=== PATIENT | male | born 1960 | race Caucasian/White ===

== ENCOUNTER 2016-11-14 02:30 | Observation (INO) | payer OTHER ==
[2016-11-14] MEDS ORDERED: Aspirin Low Dose CHEW TAB* 81 MG PO ONE (02:32)
[2016-11-14 02:51] LABS: Hematocrit 39 % (42-52); Hemoglobin 13.4 g/dl (14.0-18.0); Mean Corpuscular HGB Conc 34 g/dl (31-36); Mean Corpuscular Hemoglobin 30 pg (27-31); Mean Corpuscular Volume 87 fL (80-94); Mean Platelet Volume 9 um3 (7.4-10.4); Red Blood Count 4.49 10^6/ul (4.0-5.4); Red Cell Distribution Width 14 % (10.5-15); White Blood Count 8.4 10^3/ul (3.5-10.8)
[2016-11-14 03:06] LABS: BUN/Creatinine Ratio 22.8 (8-20); Calcium 9.3 mg/dL (8.6-10.3); EGFR African American 85.2 (>60); EGFR Non-African American 66.2 (>60); Total Bilirubin 0.4 mg/dL (0.2-1.0)
[2016-11-14 03:08] LABS: Potassium 3.5 mmol/L (3.5-5.0)
[2016-11-14 03:09] LABS: Troponin I 0.1 ng/mL (<0.04)
--- NOTE | 2016-11-14 04:43 | ED ---
Solomon Colon Billy, scribed for Aroldo Bailey MD on 11/14/16 at 0248 . Palpitations / Dysrhythmia - HPI Summary HPI Summary: Patient is a 56 year-old male coming to [facility] for evaluation after his ICD fired 5x in the last half hour prior to arrival to the ED. He also reports some chest tightness. Patient recently traveled to [place] from [place]. - History of Current Complaint Chief Complaint: EDDysrhythmPalp Time Seen by Provider: 11/14/16 02:31 Hx Obtained From: Patient Onset/Duration: Gradual Onset Timing: Intermittent Episodes Lasting: Severity Initially: Moderate Severity Currently: Moderate Character: Irregular Associated Signs & Symptoms: Chest Pain - Allergy/Home Medications Allergies/Adverse Reactions: Allergies Allergy/AdvReac Type Severity Reaction Status Date / Time No Known Allergies Allergy Verified 11/14/16 03:47 Home Medications: Home Medications Aspirin [Aspirin 81 MG TAB] 81 mg PO QAM 11/14/16 [History Confirmed 11/14/16] Irbesartan 11/14/16 [History] Metoprolol Succinate [Toprol Xl] 25 mg PO QPM 11/14/16 [History Confirmed ] Metoprolol Succinate [Toprol Xl] 50 mg PO QAM 11/14/16 [History Confirmed ] Ranolazine (NF) [Ranexa (NF)] 1,000 mg PO BID 11/14/16 [History Confirmed ] PMH/Surg Hx/FS Hx/Imm Hx Endocrine/Hematology History: Denies: Hx Diabetes Cardiovascular History: Reports: Other Cardiovascular Problems/Disorders - ICD in 2011 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, VT, and afib Infectious Disease History: No Infectious Disease History: Denies: Traveled Outside the US in Last 30 Days - Family History Known Family History: Positive: Cardiac Disease - Social History Alcohol Use: Weekly Substance Use Type: Reports: None Smoking Status (MU): Never Smoked Tobacco Review of Systems Negative: Fever Cardiovascular: Other - defibrillator firing, chest tightness All Other Systems Reviewed And Are Negative: Yes Physical Exam Triage Information Reviewed: Yes Vital Signs On Initial Exam: Initial Vitals Temp Pulse Resp BP Pulse Ox 97.1 F 78 14 123/78 99 11/14/16 02:32 11/14/16 02:32 11/14/16 02:32 11/14/16 02:32 11/14/16 02:32 Vital Signs Reviewed: Yes Appearance: Positive: Well-Appearing, No Pain Distress - anxious Skin: Positive: Warm Head/Face: Positive: Normal Head/Face Inspection Eyes: Positive: JEFFREY ENT: Positive: Hearing grossly normal Neck: Positive: Supple Respiratory/Lung Sounds: Positive: Breath Sounds Present Cardiovascular: Positive: RRR. Negative: Murmur Abdomen Description: Positive: Nontender, Soft Bowel Sounds: Positive: Present Musculoskeletal: Positive: Strength/ROM Intact Neurological: Positive: Alert, Oriented to Person Place, Time Psychiatric: Positive: Affect/Mood Appropriate - [place] Coma Scale Coma Scale Total: 15 Diagnostics - Vital Signs Vital Signs Temp Pulse Resp BP Pulse Ox 11/14/16 02:32 97.1 F 78 14 123/78 99 - Laboratory Lab Results: Lab Results 11/14/16 11/14/16 11/14/16 Range/Units 02:40 02:40 02:40 WBC 8.4 (3.5-10.8) 10^3/ul RBC 4.49 (4.0-5.4) 10^6/ul Hgb 13.4 L (14.0-18.0) g/dl Hct 39 L (42-52) % MCV 87 (80-94) fL MCH 30 (27-31) pg MCHC 34 (31-36) g/dl RDW 14 (10.5-15) % Plt Count 170 (150-450) 10^3/ul MPV 9 (7.4-10.4) um3 Neut % (Auto) 48.5 (38-83) % Lymph % (Auto) 36.9 (25-47) % Ul[place] % (Auto) 10.6 H (1-9) % Eos % (Auto) 2.7 (0-6) % Baso % (Auto) 1.3 (0-2) % Absolute Neuts (auto) 4.1 (1.5-7.7) 10^3/ul Absolute Lymphs (auto) 3.1 (1.0-4.8) 10^3/ul Absolute Monos (auto) 0.9 H (0-0.8) 10^3/ul Absolute Eos (auto) 0.2 (0-0.6) 10^3/ul Absolute Basos (auto) 0.1 (0-0.2) 10^3/ul Absolute Nucleated RBC 0.01 10^3/ul Nucleated RBC % 0.1 INR (Anticoag Therapy) 0.86 L (0.89-1.11) Sodium 136 (133-145) mmol/L Potassium 3.5 (3.5-5.0) mmol/L Chloride 100 L (101-111) mmol/L Carbon Dioxide 27 (22-32) mmol/L Anion Gap 9 (2-11) mmol/L BUN 26 H (6-24) mg/dL Creatinine 1.14 (0.67-1.17) mg/dL Est GFR ( Amer) 85.2 (>60) Est GFR (Non-Af Amer) 66.2 (>60) BUN/Creatinine Ratio 22.8 H (8-20) Glucose 98 (70-100) mg/dL Lactic Acid (0.5-2.0) mmol/L Calcium 9.3 (8.6-10.3) mg/dL Magnesium 2.0 (1.9-2.7) mg/dL Total Bilirubin 0.40 (0.2-1.0) mg/dL AST 43 H (13-39) U/L ALT 26 (7-52) U/L Alkaline Phosphatase 37 (34-104) U/L Troponin I 0.10 H* (<0.04) ng/mL Total Protein 7.0 (6.4-8.9) g/dL Albumin 4.0 (3.2-5.2) g/dL Globulin 3.0 (2-4) g/dL Albumin/Globulin Ratio 1.3 (1-3) 11/14/16 Range/Units 02:40 WBC (3.5-10.8) 10^3/ul RBC (4.0-5.4) 10^6/ul Hgb (14.0-18.0) g/dl Hct (42-52) % MCV (80-94) fL MCH (27-31) pg MCHC (31-36) g/dl RDW (10.5-15) % Plt Count (150-450) 10^3/ul MPV (7.4-10.4) um3 Neut % (Auto) (38-83) % Lymph % (Auto) (25-47) % Ulster % (Auto) (1-9) % Eos % (Auto) (0-6) % Baso % (Auto) (0-2) % Absolute Neuts (auto) (1.5-7.7) 10^3/ul Absolute Lymphs (auto) (1.0-4.8) 10^3/ul Absolute Monos (auto) (0-0.8) 10^3/ul Absolute Eos (auto) (0-0.6) 10^3/ul Absolute Basos (auto) (0-0.2) 10^3/ul Absolute Nucleated RBC 10^3/ul Nucleated RBC % INR (Anticoag Therapy) (0.89-1.11) Sodium (133-145) mmol/L Potassium (3.5-5.0) mmol/L Chloride (101-111) mmol/L Carbon Dioxide (22-32) mmol/L Anion Gap (2-11) mmol/L BUN (6-24) mg/dL Creatinine (0.67-1.17) mg/dL Est GFR ( Amer) (>60) Est GFR (Non-Af Amer) (>60) BUN/Creatinine Ratio (8-20) Glucose (70-100) mg/dL Lactic Acid 2.4 H* (0.5-2.0) mmol/L Calcium (8.6-10.3) mg/dL Magnesium (1.9-2.7) mg/dL Total Bilirubin (0.2-1.0) mg/dL AST (13-39) U/L ALT (7-52) U/L Alkaline Phosphatase (34-104) U/L Troponin I (<0.04) ng/mL Total Protein (6.4-8.9) g/dL Albumin (3.2-5.2) g/dL Globulin (2-4) g/dL Albumin/Globulin Ratio (1-3) Result Diagrams: 11/14/16 02:40 11/14/16 02:40 Lab Statement: Any lab studies that have been ordered have been reviewed, and results considered in the medical decision making process. - Radiology CXR Radiology Interpretation Completed By: Radiologist - See EMR* - EKG 0230 EKG Interpretation: NSR 96 bpm with frequent PVCs Re-Evaluation - Re-Evaluation First Eval Change: Improved - d/w dr luciano, d/w dr timmons Course/Dx - Diagnoses Provider Diagnoses: ACS (acute coronary syndrome) - Physician Notifications Discussed Care Of Patient With: Dr. Vega (cardiology) at 0310: patient care discussed. Dr. Timmons (hospitalist) at 0313: accepts admission. Instructed by Provider To: Admit As Inpatient - Critical Care Time Critical Care Time: 30-74 min Discharge - Discharge Plan Condition: Guarded Disposition: ADMITTED TO [facility] documentation as recorded by the Solmoon hampton Billy accurately reflects the service I personally performed and the decisions made by , Aroldo Bailey MD.
--- NOTE | 2016-11-14 07:35 | RAD ---
INDICATION: Chest pain. COMPARISON: There are no prior studies available for comparison. TECHNIQUE: Dual-energy PA and lateral views of the chest were obtained. FINDINGS: The heart is within normal limits in size. There is a cardiac device with a lead which projects over the midline anterior to the sternum. Mediastinal and hilar contours appear within normal limits. There are small calcified lymph nodes in the left hilum consistent with old granulomatous disease. There is a small calcified nodule in the left midlung measuring 5 mm in size also consistent with old granulomatous disease. The lungs are otherwise clear. No pleural effusion is seen. IMPRESSION: 1. NO EVIDENCE FOR ACUTE FINDING. 2. FINDINGS CONSISTENT WITH OLD GRANULOMATOUS DISEASE.
--- NOTE | 2016-11-14 08:58 | PN ---
Subjective Date of Service: 11/14/16 Interval History: No more ICD events noted by the patient. No new c/o. Objective Active Medications: Aspirin (Aspirin Ec Low Dose*) [facility] Last Admin: 11/14/16 08:33 Dose: 81 mg Heparin Sodium (Porcine) (Heparin Vial(*)) 5,000 units SUBCUT Q8HR [facility] Metoprolol Succinate (Toprol Xl Tab*) 25 mg PO QPM [facility] Metoprolol Succinate (Toprol Xl Tab*) 50 mg PO QAM [facility] Last Admin: 11/14/16 08:33 Dose: 50 mg Ranolazine (Ranexa (Nf)) 1,000 mg PO BID [facility] PRN Reason: Protocol Last Admin: 11/14/16 08:33 Dose: 1,000 mg Vital Signs 11/14/16 11/14/16 11/14/16 04:28 04:33 04:34 Temperature Pulse Rate 69 58 Respiratory Rate Blood Pressure 120/74 (mmHg) O2 Sat by Pulse 97 94 Oximetry 11/14/16 11/14/16 11/14/16 04:42 04:52 04:53 Temperature 97.9 F Pulse Rate 70 72 67 Respiratory 18 12 Rate Blood Pressure 113/74 (mmHg) O2 Sat by Pulse 99 99 99 Oximetry 11/14/16 11/14/16 11/14/16 05:00 05:17 05:30 Temperature Pulse Rate 69 73 71 Respiratory 15 18 16 Rate Blood Pressure 113/74 (mmHg) O2 Sat by Pulse 99 99 98 Oximetry 11/14/16 11/14/16 11/14/16 05:45 06:00 06:15 Temperature Pulse Rate 64 63 67 Respiratory 15 14 12 Rate Blood Pressure 114/64 111/68 103/68 (mmHg) O2 Sat by Pulse 98 97 99 Oximetry 11/14/16 11/14/16 11/14/16 06:30 06:45 07:00 Temperature Pulse Rate 62 60 63 Respiratory 13 12 14 Rate Blood Pressure 104/69 105/68 104/66 (mmHg) O2 Sat by Pulse 98 99 98 Oximetry 11/14/16 11/14/16 11/14/16 07:15 07:21 07:30 Temperature Pulse Rate 65 61 Respiratory 14 14 13 Rate Blood Pressure 106/74 118/79 (mmHg) O2 Sat by Pulse 97 98 Oximetry 11/14/16 11/14/16 07:45 08:00 Temperature 98.2 F Pulse Rate 61 60 Respiratory 15 10 Rate Blood Pressure 108/75 115/71 (mmHg) O2 Sat by Pulse 98 98 Oximetry Oxygen Devices in Use Now: None Appearance: Alert, sitting up in ICU bed. In good spirits. Looks comfortable. Respiratory: Symmetrical Chest Expansion and Respiratory Effort, Clear to Auscultation, Clear to Percussion Cardiovascular: NL Sounds; No Murmurs; No JVD, RRR, No Edema, - Extremities: No Edema, No Clubbing, Cyanosis, - Skin: No Rash or Ulcers, No Nodules or Sclerosis, - Neurological: Alert and Oriented x 3, NL Sensation Result Diagrams: 11/14/16 02:40 11/14/16 02:40 Additional Lab and Data: Lab Results 11/14/16 11/14/16 11/14/16 Range/Units 02:40 02:40 02:40 WBC 8.4 (3.5-10.8) 10^3/ul RBC 4.49 (4.0-5.4) 10^6/ul Hgb 13.4 L (14.0-18.0) g/dl Hct 39 L (42-52) % MCV 87 (80-94) fL MCH 30 (27-31) pg MCHC 34 (31-36) g/dl RDW 14 (10.5-15) % Plt Count 170 (150-450) 10^3/ul MPV 9 (7.4-10.4) um3 Neut % (Auto) 48.5 (38-83) % Lymph % (Auto) 36.9 (25-47) % Hart % (Auto) 10.6 H (1-9) % Eos % (Auto) 2.7 (0-6) % Baso % (Auto) 1.3 (0-2) % Absolute Neuts (auto) 4.1 (1.5-7.7) 10^3/ul Absolute Lymphs (auto) 3.1 (1.0-4.8) 10^3/ul Absolute Monos (auto) 0.9 H (0-0.8) 10^3/ul Absolute Eos (auto) 0.2 (0-0.6) 10^3/ul Absolute Basos (auto) 0.1 (0-0.2) 10^3/ul Absolute Nucleated RBC 0.01 10^3/ul Nucleated RBC % 0.1 INR (Anticoag Therapy) 0.86 L (0.89-1.11) Sodium 136 (133-145) mmol/L Potassium 3.5 (3.5-5.0) mmol/L Chloride 100 L (101-111) mmol/L Carbon Dioxide 27 (22-32) mmol/L Anion Gap 9 (2-11) mmol/L BUN 26 H (6-24) mg/dL Creatinine 1.14 (0.67-1.17) mg/dL Est GFR ( Amer) 85.2 (>60) Est GFR (Non-Af Amer) 66.2 (>60) BUN/Creatinine Ratio 22.8 H (8-20) Glucose 98 (70-100) mg/dL Lactic Acid (0.5-2.0) mmol/L Calcium 9.3 (8.6-10.3) mg/dL Magnesium 2.0 (1.9-2.7) mg/dL Total Bilirubin 0.40 (0.2-1.0) mg/dL AST 43 H (13-39) U/L ALT 26 (7-52) U/L Alkaline Phosphatase 37 (34-104) U/L Troponin I 0.10 H* (<0.04) ng/mL Total Protein 7.0 (6.4-8.9) g/dL Albumin 4.0 (3.2-5.2) g/dL Globulin 3.0 (2-4) g/dL Albumin/Globulin Ratio 1.3 (1-3) 11/14/16 Range/Units 02:40 WBC (3.5-10.8) 10^3/ul RBC (4.0-5.4) 10^6/ul Hgb (14.0-18.0) g/dl Hct (42-52) % MCV (80-94) fL MCH (27-31) pg MCHC (31-36) g/dl RDW (10.5-15) % Plt Count (150-450) 10^3/ul MPV (7.4-10.4) um3 Neut % (Auto) (38-83) % Lymph % (Auto) (25-47) % Hart % (Auto) (1-9) % Eos % (Auto) (0-6) % Baso % (Auto) (0-2) % Absolute Neuts (auto) (1.5-7.7) 10^3/ul Absolute Lymphs (auto) (1.0-4.8) 10^3/ul Absolute Monos (auto) (0-0.8) 10^3/ul Absolute Eos (auto) (0-0.6) 10^3/ul Absolute Basos (auto) (0-0.2) 10^3/ul Absolute Nucleated RBC 10^3/ul Nucleated RBC % INR (Anticoag Therapy) (0.89-1.11) Sodium (133-145) mmol/L Potassium (3.5-5.0) mmol/L Chloride (101-111) mmol/L Carbon Dioxide (22-32) mmol/L Anion Gap (2-11) mmol/L BUN (6-24) mg/dL Creatinine (0.67-1.17) mg/dL Est GFR ( Amer) (>60) Est GFR (Non-Af Amer) (>60) BUN/Creatinine Ratio (8-20) Glucose (70-100) mg/dL Lactic Acid 2.4 H* (0.5-2.0) mmol/L Calcium (8.6-10.3) mg/dL Magnesium (1.9-2.7) mg/dL Total Bilirubin (0.2-1.0) mg/dL AST (13-39) U/L ALT (7-52) U/L Alkaline Phosphatase (34-104) U/L Troponin I (<0.04) ng/mL Total Protein (6.4-8.9) g/dL Albumin (3.2-5.2) g/dL Globulin (2-4) g/dL Albumin/Globulin Ratio (1-3) Microbiology and Other Data: Microbiology 11/14/16 04:50 Nasal Screen MRSA (PCR)(ALYSIA) - Final Nasal Mrsa Negative Assess/Plan/Problems-Billing Assessment: - Patient Problems (1) Ventricular fibrillation Current Visit: Yes Status: Acute Code(s): I49.01 - VENTRICULAR FIBRILLATION SNOMED Code(s): 42347524 Comment: Patient has EP doctor at home. Ranolazine was prescribed to reduce his ICD events. He did have 4-5 alcoholic drinks yesterday. Discussed with Dr. Vega. Discharge now, pt to get some KCL before discharge. Fup with his EP physician. (2) Arrhythmogenic right ventricular cardiomyopathy Current Visit: Yes Status: Acute Code(s): I42.8 - OTHER CARDIOMYOPATHIES SNOMED Code(s): 922452738 Comment: familial.
[2016-11-14] MEDS ORDERED: Aspirin EC Low Dose* 81 MG TAB.EC PO SCH (09:00)
[2016-11-14] MEDS ORDERED: Metoprolol Succinate XL TAB* 50 MG PO SCH (09:00)
[2016-11-14] MEDS ORDERED: CMCS: Ranolazine (NF) 500 MG TAB PO SCH (09:00)
--- NOTE | 2016-11-14 11:33 | HP ---
HISTORY AND PHYSICAL: DATE OF ADMISSION: 11/14/16 CHIEF COMPLAINT: "My ICD fired." HISTORY OF PRESENT ILLNESS: The patient is a 56-year-old gentleman who presents to the [facility] while here from [place] visiting for his daughter's law school graduation and was sleeping in bed when he was awoken by his AICD going off. It tried to pace after that and went off 4 subsequent times in a fairly short period. It finally stopped. It was quite painful. He denied any associated symptoms like nausea, vomiting or shortness of breath. He was told to come to the hospital if this fired more than once, so he did. In the ER, he was felt to have some palpitations but been otherwise asymptomatic. PAST MEDICAL HISTORY: Significant for ARVC, which is arrhythmogenic right ventricular cardiomyopathy with an EF last calculated to be 34%. He has had pancreatitis status post trauma and he has had the AICD placed 5 years ago and replaced 1.5 years ago. MEDICATIONS: 1. Ranexa 1000 mg twice daily. 2. Metoprolol succinate 50 mg in the morning, 25 mg in the evening. 3. Aspirin 81 mg daily. 4. Irbesartan, unknown dose. ALLERGIES: He has no known drug allergies. FAMILY HISTORY: Mother is alive at 82, alive and well. Father at 80 of lung cancer. SOCIAL HISTORY: No tobacco. Does drink one or two beers a night and admits that he has drank 3 or maybe 4 beers last night and took his medications late at about midnight as well. It is unclear if this is related to what happened. He is on no recreational drugs. He owns a [employer] company. His , Jannie Murdock, is his healthcare proxy. He has 2 children and 2 stepchildren. REVIEW OF SYSTEMS: A 14-point review of systems is completed with the patient. All pertinent positives and negatives are in the history of present illness, otherwise is negative. PHYSICAL EXAMINATION GENERAL: A pleasant gentleman, lying in bed, in no acute distress. VITAL SIGNS: Blood pressure 120/74, pulse ox 97%, heart rate 70 beats per minute, respiratory rate of 12 breaths per minute, temperature of 97.1 degrees. HEENT: Normocephalic, atraumatic. Pupils equal, round, and reactive to light. Moist mucous membranes. NECK: Supple. No JVD, bruits, palpable thyroid or lymphadenopathy. CHEST: Clear to auscultation and percussion bilaterally. CARDIOVASCULAR: S1, S2 appreciated. Regular rate and rhythm. ABDOMEN: Positive bowel sounds in all 4 quadrants. Soft, nontender, nondistended. EXTREMITIES: No cyanosis, clubbing, or edema. 2+ peripheral pulses bilaterally. NEUROLOGIC: Alert and oriented x 3. Moves all extremities. SKIN: No rashes or abnormalities. LABORATORY DATA: White count 8.4, hemoglobin 13.4, hematocrit 39, platelets are 170. Sodium 136, potassium 3.5, chloride 100, CO2 27, BUN 26, creatinine 1.14, and glucose is 98. Lactic acid is 22.4, troponin of 0.10. INR of 0.86. Chest x-ray shows no acute infiltrates. EKG shows normal sinus rhythm with ventricular bigeminy. It should be noted that this was back to a normal sinus rhythm on the monitor when I was seeing him. ASSESSMENT AND PLAN: 1. Possible defibrillator firing, it is unclear as to what caused this. He does note that he thinks it has had gone off before, it is when he has had couple more drinks than he usually has. It is interesting to note that he also took his medications late. Nevertheless, I do not think it is likely to be myocardial infarction despite a slight bump in his troponin. This is most likely secondary to the firing of the pacemaker. He said he had negative cardiac cath in the past. We will monitor him in the ICU, cycle his troponins, and ask Cardiology to see him in the morning. He is anxious to get home to ____ __ his daughter's graduation and hopefully we can accommodate him. 2. Fluids, electrolytes, nutrition. Heart healthy diet. 3. Deep vein thrombosis prophylaxis. Heparin subcu. 4. The patient is a full code. TIME SPENT: Over 75 minutes was spent on this H and P, more than 40 minutes was spent in direct face to face contact with the patient, evaluation, physical examination, counseling and coordination of care. CC: Dr. Indra Pierson, [place], [place] and Dr. Adiel Luis at [facility] in [place], [place] * [id number]/CPS #: [id number] [facility]
[2016-11-14] MEDS ORDERED: Potassium Chlor TAB* 20 MEQ TAB.ER PO ONE (12:45)
[2016-11-14 13:00] VITALS: BP 121/71
[2016-11-14] MEDS ORDERED: Heparin VIAL(*) 5000 UNITS/ML VIAL (FIVE THOUSAND) SUBCUT SCH (16:00)
[2016-11-14] MEDS ORDERED: Metoprolol Succinate XL TAB* 25 MG PO SCH (18:00)
--- NOTE | 2016-11-14 19:06 | CONS ---
CARDIOLOGY CONSULTATION: DATE OF CONSULT: 11/14/16 INDICATION FOR CONSULTATION: Ventricular tachycardia. HISTORY OF PRESENT ILLNESS: The patient is a 56-year-old gentleman with a history of arrhythmogenic right ventricular dysplasia who came to the emergency room because his ICD had fired four times. The patient is originally from [place]. 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 The patient has a subcutaneous defibrillator. The patient is visiting [place] for his daughter's graduation from [employer] school. The patient states that last night he had a couple of beers at a graduation green party. He denied any significant symptoms or any recent changes in medications. PAST MEDICAL HISTORY: Only significant for his ICD and arrhythmogenic dysplasia. OUTPATIENT MEDICATIONS: 1. Ranexa 1000 mg twice a day. 2. Metoprolol succinate 50 mg in the morning and 25 mg in the evening. 3. Aspirin 81 mg a day. 4. Irbesartan, dose unknown. ALLERGIES: No known drug allergies. SOCIAL HISTORY: He denies tobacco use. He has rare alcohol intake. He exercises on a regular basis. He is . PHYSICAL EXAM: Height is 5 feet 8 inches, weight is 157 pounds, heart rate is 62, blood pressure 121/71, respiratory rate is 11, oxygen saturation 98% on room air, temperature 98.2. Sclerae anicteric. Oropharynx is pink without erythema. Carotids are 2+ without bruits. JVD is normal. Thyroid is normal. Cardiac Exam: S1, S2 without any murmurs, rubs or gallops. Lungs are clear to auscultation. Extremities showed no edema. He has 2+pulses throughout. The patient is awake, alert, and oriented. He moves all 4 extremities equally. He has subcutaneous ICD on the left side of his chest that is stable. DIAGNOSTIC STUDIES/LAB DATA: CBC within normal limits. Chemistries within normal limits. Potassium is only 3.5. BUN and creatinine are normal. Troponin is minimally elevated with a peak troponin of 0.18. AST and ALT are normal. IMPRESSION: This is a 56-year-old gentleman with a history of arrhythmogenic right ventricular dysplasia who was admitted to the hospital with ICD firing. His [employer] ICD was interrogated today which demonstrated sudden onset of ventricular tachycardia. He had one shot which broke him to a slow ventricular rhythm but had quick return of his ventricular tachycardia. He had three other shocks ultimately which shocked back to normal sinus rhythm with a fourth shock. In general, the patient feels asymptomatic today. PLAN: To discharge the patient from the hospital. He is to travel home to [place] on Tuesday and will follow up with his manager army as far as further electrophysiology testing or changes in his antiarrhythmic medications. [id number]/CPS #: [id number] YOLANDA
--- NOTE | 2016-11-15 02:07 | DS ---
DISCHARGE SUMMARY: DATE OF ADMISSION: DATE OF DISCHARGE: 11/14/16 HOSPITAL COURSE: This 56-year-old man presented because his ICD shocked him 4 times. This is all 1 episode. This is the second ICD, which he has had for about a year and a half. Before that, he lockhart d an ICD for several years. The patient was monitored in the intensive care unit. He had no further significant arrhythmias or shocks. His potassium was 3.5 and he was given some supplemental potassium before discharge. [email or web address] came in and interrogated his pacemaker with Dr. Vega, who reviewed the results. His p acemaker is functioning normally. He had V-tach 3 episodes. The first 2 requiring 1 shock. The las t one requiring 2 shocks. The ICD seemed to be functioning normally. 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 I note he is a visitor from [place] who came for his son's [employer] school graduation. FINAL DIAGNOSES: 1. Ventricular tachycardia. 2. Arrhythmogenic right ventricular dysplasia. DISCHARGE MEDICATIONS: 1. Ranolazine 1000 mg b.i.d. 2. Metoprolol succinate 50 mg in the morning and 25 mg in the evening. 3. Aspirin 81 mg daily. 4. Irbesartan as prescribed. [id number]/[facility] #: [id number]
== END 2016-11-14 13:20 | disposition home or self-care (01) ==
LOC: ED 02:30 → ICU 04:25 → INTOOBSV 04:25
PROVIDERS: ADMIT Internal Medicine; ATTEND Internal Medicine
DX: I47.2 Ventricular tachycardia (principal); I42.8 Other cardiomyopathies; Z95.810 Presence of automatic (implantable) cardiac defibrillator; R94.31 Abnormal electrocardiogram [ECG] [EKG]; Z79.82 Long term (current) use of aspirin; Z79.899 Other long term (current) drug therapy
CPT/HCPCS: 36415; 71020; 80053; 83605; 83735; 84484; 85025; 85610; 87641; 93005; 99291; A9270-GY; G0378